=== PATIENT | male | born 1960 | race Caucasian/White ===

== ENCOUNTER 2016-11-16 09:34 | Emergency (ER) | payer SELFPAY ==
[2016-11-16 10:02] LABS: HEMOGLOBIN 13.2 gm/dl (14.0-17.5); WHITE BLOOD COUNT 14.4 K/UL (4.5-11.0)
[2016-11-16 10:30] LABS: BUN/CREATININE RATIO 8 (0-10)
== END 2016-11-16 11:30 | disposition short-term general hospital (02) ==
LOC: ER1 09:34
PROVIDERS: Student in an Organized Health Care Education/Training Program
DX: S72.142A Displaced intertrochanteric fracture of left femur, initial encounter for closed fracture (principal); S60.811A Abrasion of right wrist, initial encounter; V49.50XA Passenger injured in collision with unspecified motor vehicles in traffic accident, initial encounter; Y92.410 Unspecified street and highway as the place of occurrence of the external cause; Z88.1 Allergy status to other antibiotic agents
CPT/HCPCS: 36415; 71010; 72170; 73552; 80053; 81001; 82550; 82553; 83605; 83690; 83874; 84484; 85025; 85610; 85730; 87086; 93005; 96374; 96376; 99291; J2405